=== PATIENT | male | born 1945 | race Caucasian/White ===

== ENCOUNTER 2018-04-08 18:37 | Inpatient (IN) | payer MEDICARE, OTHER ==
[~2018-04-08] VITALS: Ht 177.8 cm; Wt 85.0 kg
[2018-04-08] MEDS ORDERED: LISI10TA5 PO (19:23)
[2018-04-08] MEDS ORDERED: SITA100T PO (19:23)
[2018-04-08] MEDS ORDERED: METF10004 PO (19:23)
[2018-04-08] MEDS ORDERED: GLIM4TAB3 PO ×2 (19:23→19:29)
[2018-04-08 19:28] LABS: BASOPHILS # (AUTO) 0.1 K/uL (0.0-8.0); BASOPHILS % (AUTO) 0.7 % (0.0-2.0); EOSINOPHILS # (AUTO) 0.3 K/uL (0.0-0.7); EOSINOPHILS % (AUTO) 3.2 % (0.0-7.0); HEMATOCRIT 44.6 % (36.7-47.1); HEMOGLOBIN 14.9 g/dL (12.5-16.3); LYMPHOCYTES # (AUTO) 1.1 K/uL (20.0-40.0); LYMPHOCYTES % (AUTO) 13.5 % (20.5-51.5); MEAN CORPUSCULAR HEMOGLOBIN 29.3 uug (23.8-33.4); MEAN CORPUSCULAR HGB CONC 33 g/dL (32.5-36.3); MEAN CORPUSCULAR VOLUME 87.9 fL (73.0-96.2); MONOCYTES # (AUTO) 0.6 K/uL (2.0-10.0); NEUTROPHILS # (AUTO) 6.2 K/uL (1.8-8.9); NEUTROPHILS % (AUTO) 75.6 % (38.5-71.5); PLATELET COUNT (AUTO) 244 K/uL (152-348); RED BLOOD CELL COUNT(AUTO) 5.08 MIL/uL (4.06-5.63); WHITE BLOOD COUNT (AUTO) 8.2 K/uL (3.6-10.2)
[2018-04-08] MEDS ORDERED: MULT1TAB73 PO (19:29)
[2018-04-08] MEDS ORDERED: OMEG-49 PO (19:29)
[2018-04-08 19:44] LABS: *AMPHETAMINE, URINE NEGATIVE (NEGATIVE); *BARBITURATE, URINE NEGATIVE (NEGATIVE); *CANNABINOID, URINE NEGATIVE (NEGATIVE); *COCCAINE, URINE NEGATIVE (NEGATIVE); *OPIATE, URINE NEGATIVE (NEGATIVE); *PHENCYCLIDINE SCREEN,URINE NEGATIVE (NEGATIVE)
[2018-04-08 19:46] LABS: *BILIRUBIN,URIN NEGATIVE (NEGATIVE); *BLOOD, URINE 3+ (NEGATIVE); *CLARITY,URINE CLEAR (CLEAR); *COLOR,URINE YELLOW (YELLOW); *KETONES,URINE 1+ (NEGATIVE); *PROTEIN,URINE NEGATIVE (NEGATIVE); *UROBILINOGEN,URINE 0.2 E.U./dl (NORMAL); LEUKOCYTE ESTERASE ,URINE NEGATIVE (NEGATIVE); NITRITE, URINE NEGATIVE (NEGATIVE); PH,URINE 5.5 (5.0-8.0)
[2018-04-08 19:50] LABS: UGLUCOSE 3+ (NEGATIVE)
[2018-04-08 19:53] LABS: ETHANOL < 3 MG/DL (0-0)
[2018-04-08 19:55] LABS: ALANINE AMINOTRANSFERASE 43 U/L (16-63); ALKALINE PHOSPHATASE 134 U/L (50-136); ASPARTATE AMINOTRANSFERASE 21 U/L (15-37); BILIRUBIN,DIRECT 0.1 mg/dL (0.0-0.2); BILIRUBIN,TOTAL 0.4 mg/dL (0.2-1.0); CARBON DIOXIDE 27 mmol/L (21-32); CHLORIDE 97 mmol/L (98-107); POTASSIUM 4.2 mmol/L (3.5-5.1); TOTAL PROTEIN, SERUM 6.9 g/dL (6.4-8.2); UREA NITROGEN, BLOOD 16 mg/dL (7-18)
[2018-04-08 19:58] LABS: BACTERIA,URINE NONE SEEN /HPF (NONE SEEN); RBC,URINE 50-80 /HPF (0-3); SQUAMOUS EPITHELIAL CELL,UR NONE SEEN /HPF (NONE SEEN); WBC,URINE 0-3 /HPF (0-3)
[2018-04-08 20:04] LABS: ACETAMINOPHEN < 2.0 ug/mL (10-30); GLUCOSE 349 mg/dL (74-106)
[2018-04-08] MEDS ORDERED: INSULIN REGULAR, HUMAN 1,000 UNITS/10 ML VIAL IV ONE (21:15)
[2018-04-08] MEDS ORDERED: LIDOCAINE 2% (UROJET) 10 ML JELLY MM ONE ×2 (21:15→21:23)
[2018-04-08] MEDS ORDERED: INSULIN REGULAR, HUMAN 300 UNIT/3 ML VIAL ONE (21:23)
[2018-04-08] MEDS ORDERED: ACETAMINOPHEN ES 500 MG TABLET PO ONE (22:15)
[2018-04-08] MEDS ORDERED: ACETAMINOPHEN ES 500 MG TABLET ONE (22:24)
[2018-04-09] MEDS ORDERED: BISACODYL 10 MG SUPP.RECT RC ONE ×2 (01:00→01:01)
[2018-04-09 02:00] VITALS: BP 157/74
[2018-04-09] MEDS ORDERED: ONDANSETRON 4 MG/2 ML VIAL IV PRN (03:00)
[2018-04-09] MEDS ORDERED: DEXTROSE 50% 50 ML DISP.SYRIN IV PRN ×2 (03:00→11:00)
[2018-04-09] MEDS ORDERED: Z GUARD REMEDY PASTE 57 GM TUBE TOP PRN (03:00)
[2018-04-09] MEDS: ACETAMINOPHEN 325 MG TABLET PO PRN ×2 (03:47→09:55)
[2018-04-09] MEDS: IV NS 1000 ML 1,000 ML IV PRN (03:48)
[2018-04-09] MEDS ORDERED: CEFTRIAXONE 1 G VIAL ONE (03:57)
[2018-04-09] MEDS: BLOOD SUGAR DIAGNOSTIC 1 EACH STRIP VI SCH ×5 (04:02→20:33)
[2018-04-09] MEDS: CEFTRIAXONE 1 G in IV DEXTROSE 5% 50 ML IV SCH (04:02)
[2018-04-09] MEDS ORDERED: INSULIN REGULAR, HUMAN 300 UNIT/3 ML VIAL ONE (04:05)
[2018-04-09] MEDS: INSULIN REGULAR, HUMAN 300 UNIT/3 ML VIAL SQ PRN ×4 (04:09→17:22)
[2018-04-09 06:56] LABS: BASOPHILS # (AUTO) 0.1 K/uL (0.0-8.0); BASOPHILS % (AUTO) 0.6 % (0.0-2.0); EOSINOPHILS # (AUTO) 0.4 K/uL (0.0-0.7); EOSINOPHILS % (AUTO) 3.6 % (0.0-7.0); HEMATOCRIT 42.4 % (36.7-47.1); HEMOGLOBIN 14.1 g/dL (12.5-16.3); LYMPHOCYTES # (AUTO) 1.8 K/uL (20.0-40.0); LYMPHOCYTES % (AUTO) 17.4 % (20.5-51.5); MEAN CORPUSCULAR HEMOGLOBIN 28.6 uug (23.8-33.4); MEAN CORPUSCULAR HGB CONC 33 g/dL (32.5-36.3); MONOCYTES # (AUTO) 0.7 K/uL (2.0-10.0); MONOCYTES % (AUTO) 6.7 % (0.0-11.0); NEUTROPHILS # (AUTO) 7.3 K/uL (1.8-8.9); NEUTROPHILS % (AUTO) 71.7 % (38.5-71.5); PLATELET COUNT (AUTO) 253 K/uL (152-348); RED BLOOD CELL COUNT(AUTO) 4.93 MIL/uL (4.06-5.63); WHITE BLOOD COUNT (AUTO) 10.3 K/uL (3.6-10.2)
[2018-04-09 07:17] LABS: THYROID STIMULATING HORMONE 2.711 mIU/mL (0.358-3.740)
[2018-04-09 07:19] LABS: ALANINE AMINOTRANSFERASE 38 U/L (16-63); ALKALINE PHOSPHATASE 118 U/L (50-136); ASPARTATE AMINOTRANSFERASE 23 U/L (15-37); BILIRUBIN,TOTAL 0.5 mg/dL (0.2-1.0); CARBON DIOXIDE 25 mmol/L (21-32); CHLORIDE 101 mmol/L (98-107); CREATININE 1.1 mg/dL (0.6-1.3); GLUCOSE 236 mg/dL (74-106); MAGNESIUM 1.7 mg/dL (1.8-2.4); PHOSPHOROUS 3.6 mg/dL (2.5-4.9); POTASSIUM 3.8 mmol/L (3.5-5.1); TOTAL PROTEIN, SERUM 6.7 g/dL (6.4-8.2); UREA NITROGEN, BLOOD 16 mg/dL (7-18)
[2018-04-09 08:22] VITALS: BP 126/72
[2018-04-09] MEDS: MULTIVITAMINS,THERAPEUTIC TABLET PO SCH (08:45)
[2018-04-09] MEDS: SITAGLIPTIN PHOSPHATE 50 MG TABLET PO SCH (08:49)
[2018-04-09] MEDS: LISINOPRIL 10 MG TABLET PO SCH (08:51)
[2018-04-09] MEDS ORDERED: MAGNESIUM SULFATE/D5W 100 ML IV SCH (11:00)
[2018-04-09] MEDS: DOCUSATE SODIUM 100 MG CAPSULE PO SCH ×2 (11:28→20:32)
[2018-04-09 12:00] VITALS: BP 121/77
[2018-04-09] MEDS ORDERED: MAGNESIUM HYDROXIDE 30 ML LIQUID UDC PO ONE (15:30)
[2018-04-09] MEDS ORDERED: GLYCERIN ADULT RECTAL SUPP EACH RC ONE (15:30)
[2018-04-09] MEDS ORDERED: GLYCERIN ADULT RECTAL SUPP EACH RC PRN (15:30)
[2018-04-09 16:26] VITALS: BP 138/79
[2018-04-09] MEDS: GLIMEPIRIDE 4 MG TABLET PO SCH (17:19)
[2018-04-09] MEDS: PANTOPRAZOLE SODIUM 40 MG TABLET.DR PO SCH (17:22)
[2018-04-09 20:00] VITALS: BP 139/75
[2018-04-09] MEDS: INSULIN REGULAR, HUMAN 300 UNITS/3 ML VIAL SQ PRN (20:37)
[2018-04-09] MEDS ORDERED: TRAZODONE 50 MG TABLET NG STA (22:53)
[2018-04-10] MEDS: IV NS 1000 ML 1,000 ML IV PRN ×2 (00:44→15:28)
[2018-04-10 04:00] VITALS: BP 130/72
[2018-04-10] MEDS: CEFTRIAXONE 1 G in IV DEXTROSE 5% 50 ML IV SCH (05:09)
[2018-04-10] MEDS: PANTOPRAZOLE SODIUM 40 MG TABLET.DR PO SCH (06:12)
[2018-04-10] MEDS: BLOOD SUGAR DIAGNOSTIC 1 EACH STRIP VI SCH ×4 (06:13→20:41)
[2018-04-10 06:29] LABS: BASOPHILS % (AUTO) 0.4 % (0.0-2.0); EOSINOPHILS # (AUTO) 0.4 K/uL (0.0-0.7); EOSINOPHILS % (AUTO) 4.5 % (0.0-7.0); HEMATOCRIT 41.7 % (36.7-47.1); HEMOGLOBIN 13.7 g/dL (12.5-16.3); LYMPHOCYTES # (AUTO) 1.6 K/uL (20.0-40.0); LYMPHOCYTES % (AUTO) 18.8 % (20.5-51.5); MEAN CORPUSCULAR HGB CONC 33 g/dL (32.5-36.3); MEAN CORPUSCULAR VOLUME 88.2 fL (73.0-96.2); MONOCYTES # (AUTO) 0.7 K/uL (2.0-10.0); MONOCYTES % (AUTO) 8.5 % (0.0-11.0); NEUTROPHILS # (AUTO) 5.8 K/uL (1.8-8.9); NEUTROPHILS % (AUTO) 67.8 % (38.5-71.5); PLATELET COUNT (AUTO) 222 K/uL (152-348); RED BLOOD CELL COUNT(AUTO) 4.73 MIL/uL (4.06-5.63); WHITE BLOOD COUNT (AUTO) 8.5 K/uL (3.6-10.2)
[2018-04-10 06:44] LABS: CARBON DIOXIDE 26 mmol/L (21-32); CHLORIDE 104 mmol/L (98-107); CREATININE 0.8 mg/dL (0.6-1.3); GLUCOSE 180 mg/dL (74-106); MAGNESIUM 1.8 mg/dL (1.8-2.4); PHOSPHOROUS 3.7 mg/dL (2.5-4.9); POTASSIUM 4.1 mmol/L (3.5-5.1); UREA NITROGEN, BLOOD 11 mg/dL (7-18)
[2018-04-10] MEDS: INSULIN REGULAR, HUMAN 300 UNIT/3 ML VIAL SQ PRN ×3 (08:11→17:08)
[2018-04-10] MEDS: LISINOPRIL 10 MG TABLET PO SCH (08:20)
[2018-04-10] MEDS: MULTIVITAMINS,THERAPEUTIC TABLET PO SCH (08:20)
[2018-04-10] MEDS: SITAGLIPTIN PHOSPHATE 50 MG TABLET PO SCH (08:20)
[2018-04-10] MEDS: DOCUSATE SODIUM 100 MG CAPSULE PO SCH ×2 (08:20→20:44)
[2018-04-10] MEDS: MORPHINE SULFATE 2 MG/1 ML DISP.SYRIN IV PRN ×2 (09:35→22:29)
[2018-04-10 12:00] VITALS: BP 120/63
[2018-04-10] MEDS ORDERED: FLEET ENEMA 133 ML BOTTLE RC ONE (12:30)
[2018-04-10 15:56] VITALS: BP 108/51
[2018-04-10] MEDS: GLIMEPIRIDE 4 MG TABLET PO SCH (17:08)
[2018-04-10 19:30] VITALS: BP 105/59
[2018-04-10] MEDS: INSULIN REGULAR, HUMAN 300 UNITS/3 ML VIAL SQ PRN (20:55)
[2018-04-10] MEDS ORDERED: TRAZODONE 50 MG TABLET PO SCH (21:00)
[2018-04-11] MEDS: CEFTRIAXONE 1 G in IV DEXTROSE 5% 50 ML IV SCH (03:37)
[2018-04-11] MEDS: BLOOD SUGAR DIAGNOSTIC 1 EACH STRIP VI SCH ×4 (05:06→21:14)
[2018-04-11] MEDS: IV NS 1000 ML 1,000 ML IV PRN (05:07)
[2018-04-11] MEDS: PANTOPRAZOLE SODIUM 40 MG TABLET.DR PO SCH (05:43)
[2018-04-11 06:37] LABS: BASOPHILS # (AUTO) 0.1 K/uL (0.0-8.0); BASOPHILS % (AUTO) 0.7 % (0.0-2.0); EOSINOPHILS # (AUTO) 0.4 K/uL (0.0-0.7); EOSINOPHILS % (AUTO) 4.6 % (0.0-7.0); HEMATOCRIT 41.3 % (36.7-47.1); HEMOGLOBIN 13.5 g/dL (12.5-16.3); LYMPHOCYTES # (AUTO) 2.1 K/uL (20.0-40.0); LYMPHOCYTES % (AUTO) 25.5 % (20.5-51.5); MEAN CORPUSCULAR HGB CONC 33 g/dL (32.5-36.3); MEAN CORPUSCULAR VOLUME 88.5 fL (73.0-96.2); MONOCYTES # (AUTO) 0.6 K/uL (2.0-10.0); MONOCYTES % (AUTO) 7.3 % (0.0-11.0); NEUTROPHILS # (AUTO) 5.1 K/uL (1.8-8.9); NEUTROPHILS % (AUTO) 61.9 % (38.5-71.5); PLATELET COUNT (AUTO) 228 K/uL (152-348); RED BLOOD CELL COUNT(AUTO) 4.67 MIL/uL (4.06-5.63); WHITE BLOOD COUNT (AUTO) 8.1 K/uL (3.6-10.2)
[2018-04-11 06:53] LABS: ALANINE AMINOTRANSFERASE 30 U/L (16-63); ALKALINE PHOSPHATASE 82 U/L (50-136); ASPARTATE AMINOTRANSFERASE 20 U/L (15-37); BILIRUBIN,TOTAL 0.3 mg/dL (0.2-1.0); CARBON DIOXIDE 28 mmol/L (21-32); CHLORIDE 103 mmol/L (98-107); CREATININE 0.8 mg/dL (0.6-1.3); GLUCOSE 151 mg/dL (74-106); MAGNESIUM 1.8 mg/dL (1.8-2.4); PHOSPHOROUS 4.2 mg/dL (2.5-4.9); POTASSIUM 4.1 mmol/L (3.5-5.1); UREA NITROGEN, BLOOD 11 mg/dL (7-18)
[2018-04-11] MEDS: DOCUSATE SODIUM 100 MG CAPSULE PO SCH ×2 (08:11→21:13)
[2018-04-11] MEDS: MULTIVITAMINS,THERAPEUTIC TABLET PO SCH (08:11)
[2018-04-11] MEDS: ACETAMINOPHEN 325 MG TABLET PO PRN (08:11)
[2018-04-11] MEDS: SITAGLIPTIN PHOSPHATE 50 MG TABLET PO SCH (08:11)
[2018-04-11] MEDS: INSULIN REGULAR, HUMAN 300 UNIT/3 ML VIAL SQ PRN ×2 (08:14→17:16)
[2018-04-11] MEDS: LISINOPRIL 10 MG TABLET PO SCH (08:15)
[2018-04-11] MEDS: GLIMEPIRIDE 4 MG TABLET PO SCH ×2 (09:07→17:10)
[2018-04-11 11:11] VITALS: BP 116/57
[2018-04-11 15:40] VITALS: BP 118/75
[2018-04-11] MEDS ORDERED: LIDOCAINE 2% 30 ML JELLY MC ONE (17:00)
[2018-04-11] MEDS: PHENAZOPYRIDINE HCL 100 MG TABLET PO SCH ×2 (17:10→21:14)
[2018-04-11 20:00] VITALS: BP 118/67
[2018-04-11] MEDS: TRAZODONE 100 MG TABLET PO SCH (21:13)
[2018-04-11] MEDS: SENNOSIDES 1 TABLET PO SCH (21:13)
[2018-04-11] MEDS: TAMSULOSIN HCL 0.4 MG CAP.SR.24H PO SCH (21:14)
[2018-04-12] MEDS: CEFTRIAXONE 1 G in IV DEXTROSE 5% 50 ML IV SCH (05:00)
[2018-04-12 06:06] VITALS: BP 112/62
[2018-04-12] MEDS: PANTOPRAZOLE SODIUM 40 MG TABLET.DR PO SCH (06:23)
[2018-04-12] MEDS: GLIMEPIRIDE 4 MG TABLET PO SCH ×2 (06:24→17:05)
[2018-04-12] MEDS: IV NS 1000 ML 1,000 ML IV PRN ×2 (06:24→22:47)
[2018-04-12] MEDS: PHENAZOPYRIDINE HCL 100 MG TABLET PO SCH ×3 (06:24→21:32)
[2018-04-12 06:29] LABS: BASOPHILS # (AUTO) 0.1 K/uL (0.0-8.0); BASOPHILS % (AUTO) 0.8 % (0.0-2.0); EOSINOPHILS # (AUTO) 0.3 K/uL (0.0-0.7); EOSINOPHILS % (AUTO) 3.4 % (0.0-7.0); HEMATOCRIT 42.7 % (36.7-47.1); HEMOGLOBIN 14.3 g/dL (12.5-16.3); LYMPHOCYTES # (AUTO) 1.5 K/uL (20.0-40.0); LYMPHOCYTES % (AUTO) 18.7 % (20.5-51.5); MEAN CORPUSCULAR HEMOGLOBIN 29.4 uug (23.8-33.4); MEAN CORPUSCULAR HGB CONC 33 g/dL (32.5-36.3); MONOCYTES # (AUTO) 0.7 K/uL (2.0-10.0); MONOCYTES % (AUTO) 8.8 % (0.0-11.0); NEUTROPHILS # (AUTO) 5.5 K/uL (1.8-8.9); NEUTROPHILS % (AUTO) 68.3 % (38.5-71.5); PLATELET COUNT (AUTO) 209 K/uL (152-348); RED BLOOD CELL COUNT(AUTO) 4.86 MIL/uL (4.06-5.63)
[2018-04-12] MEDS: MORPHINE SULFATE 2 MG/1 ML DISP.SYRIN IV PRN (06:29)
[2018-04-12] MEDS: BLOOD SUGAR DIAGNOSTIC 1 EACH STRIP VI SCH ×4 (06:32→21:32)
[2018-04-12 06:39] LABS: ALANINE AMINOTRANSFERASE 35 U/L (16-63); ALKALINE PHOSPHATASE 90 U/L (50-136); ASPARTATE AMINOTRANSFERASE 24 U/L (15-37); BILIRUBIN,TOTAL 0.4 mg/dL (0.2-1.0); CARBON DIOXIDE 25 mmol/L (21-32); CHLORIDE 105 mmol/L (98-107); GLUCOSE 244 mg/dL (74-106); MAGNESIUM 1.9 mg/dL (1.8-2.4); PHOSPHOROUS 3.4 mg/dL (2.5-4.9); POTASSIUM 4.2 mmol/L (3.5-5.1); TOTAL PROTEIN, SERUM 6.3 g/dL (6.4-8.2); UREA NITROGEN, BLOOD 11 mg/dL (7-18)
[2018-04-12 08:00] VITALS: BP 151/70
[2018-04-12] MEDS: INSULIN REGULAR, HUMAN 300 UNIT/3 ML VIAL SQ PRN ×4 (08:02→21:34)
[2018-04-12] MEDS: DOCUSATE SODIUM 100 MG CAPSULE PO SCH ×2 (08:02→21:32)
[2018-04-12] MEDS: LISINOPRIL 10 MG TABLET PO SCH (08:03)
[2018-04-12] MEDS: MULTIVITAMINS,THERAPEUTIC TABLET PO SCH (08:03)
[2018-04-12] MEDS: SITAGLIPTIN PHOSPHATE 50 MG TABLET PO SCH (08:03)
[2018-04-12] MEDS: FINASTERIDE 5 MG TABLET PO SCH (08:03)
[2018-04-12 12:00] VITALS: BP 120/69
[2018-04-12] MEDS ORDERED: LIDOCAINE HCL 2% 20 ML VIAL IJ PRN (12:00)
[2018-04-12] MEDS ORDERED: GLYCERIN ADULT RECTAL SUPP EACH RC ONE (12:00)
[2018-04-12] MEDS ORDERED: MAGNESIUM CITRATE 296 ML BOTTLE PO ONE (12:00)
[2018-04-12] MEDS: CEPHALEXIN MONOHYDRATE 500 MG CAPSULE PO SCH ×2 (14:40→21:32)
[2018-04-12] MEDS: KETOROLAC TROMETHAMINE 30 MG INJ IVP SCH ×2 (14:40→19:39)
[2018-04-12 17:08] VITALS: BP 106/56
[2018-04-12 20:00] VITALS: BP 114/63
[2018-04-12] MEDS ORDERED: PHENAZOPYRIDINE HCL 100 MG TABLET ONE (21:18)
[2018-04-12] MEDS: SENNOSIDES 1 TABLET PO SCH (21:32)
[2018-04-12] MEDS: TAMSULOSIN HCL 0.4 MG CAP.SR.24H PO SCH (21:32)
[2018-04-12] MEDS: TRAZODONE 100 MG TABLET PO SCH (21:32)
[2018-04-12] MEDS: INSULIN REGULAR, HUMAN 300 UNITS/3 ML VIAL SQ PRN (21:34)
[2018-04-13] MEDS: KETOROLAC TROMETHAMINE 30 MG INJ IVP SCH ×3 (01:54→14:11)
[2018-04-13 04:00] VITALS: BP 145/78
[2018-04-13] MEDS: PANTOPRAZOLE SODIUM 40 MG TABLET.DR PO SCH (06:24)
[2018-04-13] MEDS: CEPHALEXIN MONOHYDRATE 500 MG CAPSULE PO SCH ×2 (06:25→14:12)
[2018-04-13] MEDS: GLIMEPIRIDE 4 MG TABLET PO SCH ×2 (06:25→17:21)
[2018-04-13] MEDS: BLOOD SUGAR DIAGNOSTIC 1 EACH STRIP VI SCH ×3 (06:29→16:38)
[2018-04-13 06:44] LABS: BASOPHILS % (AUTO) 0.6 % (0.0-2.0); EOSINOPHILS # (AUTO) 0.2 K/uL (0.0-0.7); EOSINOPHILS % (AUTO) 2.4 % (0.0-7.0); HEMATOCRIT 43.8 % (36.7-47.1); HEMOGLOBIN 14.6 g/dL (12.5-16.3); LYMPHOCYTES # (AUTO) 1.2 K/uL (20.0-40.0); LYMPHOCYTES % (AUTO) 14.4 % (20.5-51.5); MEAN CORPUSCULAR HEMOGLOBIN 29.6 uug (23.8-33.4); MEAN CORPUSCULAR HGB CONC 33 g/dL (32.5-36.3); MEAN CORPUSCULAR VOLUME 88.5 fL (73.0-96.2); MONOCYTES # (AUTO) 0.4 K/uL (2.0-10.0); MONOCYTES % (AUTO) 4.7 % (0.0-11.0); NEUTROPHILS # (AUTO) 6.4 K/uL (1.8-8.9); NEUTROPHILS % (AUTO) 77.9 % (38.5-71.5); PLATELET COUNT (AUTO) 230 K/uL (152-348); RED BLOOD CELL COUNT(AUTO) 4.95 MIL/uL (4.06-5.63); WHITE BLOOD COUNT (AUTO) 8.2 K/uL (3.6-10.2)
[2018-04-13 07:02] LABS: ALANINE AMINOTRANSFERASE 26 U/L (16-63); ALKALINE PHOSPHATASE 87 U/L (50-136); ASPARTATE AMINOTRANSFERASE 17 U/L (15-37); BILIRUBIN,TOTAL 0.4 mg/dL (0.2-1.0); CARBON DIOXIDE 29 mmol/L (21-32); CHLORIDE 103 mmol/L (98-107); CREATININE 0.9 mg/dL (0.6-1.3); GLUCOSE 105 mg/dL (74-106); MAGNESIUM 1.9 mg/dL (1.8-2.4); PHOSPHOROUS 3.3 mg/dL (2.5-4.9); POTASSIUM 4.1 mmol/L (3.5-5.1); TOTAL PROTEIN, SERUM 6.1 g/dL (6.4-8.2); UREA NITROGEN, BLOOD 14 mg/dL (7-18)
[2018-04-13] MEDS: PHENAZOPYRIDINE HCL 100 MG TABLET PO SCH ×2 (08:33→14:12)
[2018-04-13] MEDS: LISINOPRIL 10 MG TABLET PO SCH (08:35)
[2018-04-13] MEDS: DOCUSATE SODIUM 100 MG CAPSULE PO SCH (08:35)
[2018-04-13] MEDS: SITAGLIPTIN PHOSPHATE 50 MG TABLET PO SCH (08:35)
[2018-04-13] MEDS: MULTIVITAMINS,THERAPEUTIC TABLET PO SCH (08:36)
[2018-04-13] MEDS: FINASTERIDE 5 MG TABLET PO SCH (08:36)
[2018-04-13 11:14] VITALS: BP 111/61
[2018-04-13] MEDS: IV NS 1000 ML 1,000 ML IV PRN (12:21)
[2018-04-13] MEDS: INSULIN REGULAR, HUMAN 300 UNIT/3 ML VIAL SQ PRN ×2 (12:24→16:56)
[2018-04-13] MEDS ORDERED: INSU100V28 SQ ×2 (13:35)
[2018-04-13] MEDS ORDERED: [UNRECOGNIZED DRUG - CODE] RC (13:35)
[2018-04-13] MEDS ORDERED: LISI10TA5 PO (13:35)
[2018-04-13] MEDS ORDERED: HYDR-3326 PO (13:35)
[2018-04-13] MEDS ORDERED: DOCU100C36 PO (13:35)
[2018-04-13] MEDS ORDERED: MULT-24 PO (13:35)
[2018-04-13] MEDS ORDERED: CEPH500C2 PO (13:35)
[2018-04-13] MEDS ORDERED: FINA5TAB11 PO (13:35)
[2018-04-13] MEDS ORDERED: Blood Sugar Diagnostic VI (13:35)
[2018-04-13] MEDS ORDERED: ACET325T53 PO (13:35)
[2018-04-13] MEDS ORDERED: TRAZ-214 PO (13:35)
[2018-04-13] MEDS ORDERED: TAMS-3 PO (13:35)
[2018-04-13] MEDS ORDERED: SENN-167 PO (13:35)
[2018-04-13] MEDS ORDERED: GLIM4TAB PO ×2 (13:35)
[2018-04-13] MEDS ORDERED: PANT40TA2 PO (13:35)
[2018-04-13 16:22] VITALS: BP 127/72
[2018-04-14] MEDS ORDERED: LINAGLIPTIN 5 MG TABLET PO SCH (09:00)
== END 2018-04-13 18:10 | DRG 389 ==
LOC: ER 18:39 → MED 04-09 01:19
PROVIDERS: ADMIT Psychiatry & Neurology Psychiatry; ATTEND Internal Medicine
PROC: 0T9B70Z Drainage of Bladder with Drainage Device, Via Natural or Artificial Opening (ICD-10-PCS; principal; 2018-04-08)
DX: K56.41 Fecal impaction (principal); N13.8 Other obstructive and reflux uropathy; E44.0 Moderate protein-calorie malnutrition; J98.11 Atelectasis; N40.1 Benign prostatic hyperplasia with lower urinary tract symptoms; R33.8 Other retention of urine; N21.0 Calculus in bladder; E11.65 Type 2 diabetes mellitus with hyperglycemia; Z79.84 Long term (current) use of oral hypoglycemic drugs; Z65.3 Problems related to other legal circumstances; F32.9 Major depressive disorder, single episode, unspecified; R31.29 Other microscopic hematuria; Z68.26 Body mass index [BMI] 26.0-26.9, adult; K76.0 Fatty (change of) liver, not elsewhere classified; G47.00 Insomnia, unspecified; F41.9 Anxiety disorder, unspecified; E83.42 Hypomagnesemia; E88.09 Other disorders of plasma-protein metabolism, not elsewhere classified; Z91.5 Personal history of self-harm; G54.2 Cervical root disorders, not elsewhere classified; K57.30 Diverticulosis of large intestine without perforation or abscess without bleeding; K40.90 Unilateral inguinal hernia, without obstruction or gangrene, not specified as recurrent; I10 Essential (primary) hypertension; Z98.42 Cataract extraction status, left eye; Z98.41 Cataract extraction status, right eye; Z91.19 Patient's noncompliance with other medical treatment and regimen; I70.0 Atherosclerosis of aorta; E11.40 Type 2 diabetes mellitus with diabetic neuropathy, unspecified
CPT/HCPCS: 36415; 70030-TC; 71045; 74018; 80307; 83735; 84100; 84153; 84443; 85025; 93005; A4663; A9150; G0480; G0480-TC; J0696; J1815; J1885; J2270; J3475; J7030; J7060

== ENCOUNTER 2018-04-13 18:50 | Inpatient (IN) | payer MEDICARE, OTHER ==
[~2018-04-13] VITALS: Ht 177.8 cm; Wt 79.4 kg
[~2018-04-13 18:50] MED LIST: ACET325T53 PO; Blood Sugar Diagnostic VI; CEPH500C2 PO; DOCU100C36 PO; FINA5TAB11 PO; GLIM4TAB PO; GLIM4TAB3 PO; HYDR-3326 PO; INSU100V28 SQ; LISI10TA5 PO; METF10004 PO; MULT-24 PO; MULT1TAB73 PO; OMEG-49 PO; PANT40TA2 PO; SENN-167 PO; SITA100T PO; TAMS-3 PO; TRAZ-214 PO; [UNRECOGNIZED DRUG - CODE] RC
[2018-04-13] MEDS ORDERED: MAGNESIUM HYDROXIDE 30 ML LIQUID UDC PO PRN (19:00)
[2018-04-13] MEDS ORDERED: MAG HYDROX/AL HYDROX/SIMETH 30 ML LIQUID UDC PO PRN (19:00)
[2018-04-13] MEDS ORDERED: ACETAMINOPHEN 325 MG TABLET PO PRN (19:00)
[2018-04-13] MEDS ORDERED: LORAZEPAM 1 MG TABLET PO PRN (19:00)
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
[2018-04-13 20:00] VITALS: BP 128/65
[2018-04-13] MEDS ORDERED: GLYCERIN ADULT RECTAL SUPP EACH RC PRN (20:00)
[2018-04-13] MEDS ORDERED: INSULIN REGULAR, HUMAN 300 UNIT/3 ML VIAL SQ PRN ×3 (20:00)
[2018-04-13] MEDS ORDERED: DEXTROSE 50% 50 ML DISP.SYRIN IV PRN (20:00)
[2018-04-13] MEDS ORDERED: hydrALAZINE HCL 25 MG TABLET PO PRN (20:00)
[2018-04-13] MEDS: TRAZODONE 100 MG TABLET PO SCH (21:12)
[2018-04-13] MEDS: TAMSULOSIN HCL 0.4 MG CAP.SR.24H PO SCH (21:12)
[2018-04-13] MEDS: DOCUSATE SODIUM 100 MG CAPSULE PO SCH (21:12)
[2018-04-13] MEDS: SENNOSIDES 1 TABLET PO SCH (21:12)
[2018-04-13] MEDS: BLOOD SUGAR DIAGNOSTIC 1 EACH STRIP VI SCH (21:15)
[2018-04-13] MEDS ORDERED: INSULIN REGULAR, HUMAN 300 UNIT/3 ML VIAL ONE (22:14)
[2018-04-14] MEDS ORDERED: GLIMEPIRIDE 4 MG TABLET ONE (05:38)
[2018-04-14] MEDS: CEPHALEXIN MONOHYDRATE 500 MG CAPSULE PO SCH ×3 (06:15→21:11)
[2018-04-14] MEDS: PANTOPRAZOLE SODIUM 40 MG TABLET.DR PO SCH (06:15)
[2018-04-14] MEDS: HYDROCODONE/APAP 5-325MG TABLET PO PRN ×2 (06:22→19:53)
[2018-04-14] MEDS: GLIMEPIRIDE 4 MG TABLET PO SCH ×2 (06:30→18:00)
[2018-04-14] MEDS: BLOOD SUGAR DIAGNOSTIC 1 EACH STRIP VI SCH ×4 (06:30→21:27)
[2018-04-14 07:30] VITALS: BP 114/69
[2018-04-14] MEDS ORDERED: Medication Not On Formulary EA (Omega-3/Dha/Epa/Fish Oil (Fish Oil 1,000 Mg Softgel) 1 E PO SCH (09:00)
[2018-04-14] MEDS: LINAGLIPTIN 5 MG TABLET PO SCH (09:00)
[2018-04-14] MEDS: DOCUSATE SODIUM 100 MG CAPSULE PO SCH ×2 (09:15→21:11)
[2018-04-14] MEDS: MULTIVITAMINS,THERAPEUTIC TABLET PO SCH (09:15)
[2018-04-14] MEDS: OMEGA-3 FATTY ACIDS/FISH OIL CAPSULE PO SCH (09:15)
[2018-04-14] MEDS: FINASTERIDE 5 MG TABLET PO SCH (09:16)
[2018-04-14] MEDS: LISINOPRIL 5 MG TABLET PO SCH (09:17)
[2018-04-14] MEDS: METFORMIN HCL 500 MG TABLET PO SCH ×2 (09:24→18:00)
[2018-04-14 16:47] VITALS: BP 121/70
--- NOTE | 2018-04-14 18:40 | NUR ---
RECEIVED PATIENT IN BED SLEEPING MOST OF SHIFT ,REFUSED TO EAT BREAKFAST AND LUNCH ,ACC -CHECK DONE INSULIN COVERAGE NOT GIVEN DUE TO NOT EATING THE MEALS,F/C IN PLACE WITH 750 ML OUT PUT .
[2018-04-14 19:30] VITALS: BP 116/62
[2018-04-14] MEDS: TAMSULOSIN HCL 0.4 MG CAP.SR.24H PO SCH (21:10)
[2018-04-14] MEDS: SENNOSIDES 1 TABLET PO SCH (21:11)
[2018-04-14] MEDS: TRAZODONE 100 MG TABLET PO SCH (21:11)
--- NOTE | 2018-04-14 22:00 | NUR ---
RECEIVED TO CARE, PLEASANT, BUT ISOLATIVE, UPON APPROACH. SUNNY torres wasgiven at 1952 for groin pain 03/28, which was effective (2/), by 2099. INSULIN COVERAGE WAS NOT GIVEN, DUE TO PT SLEEPING, AND NOT TAKING A SNACK. OF 2199, HE APPEARS TO BE ASLEEP. NO DISTRESS NOTED.
[2018-04-15] MEDS: HYDROCODONE/APAP 5-325MG TABLET PO PRN ×2 (02:13→16:23)
[2018-04-15] MEDS ORDERED: DEXTROSE 50% 50 ML DISP.SYRIN IV PRN (05:30)
[2018-04-15] MEDS: CEPHALEXIN MONOHYDRATE 500 MG CAPSULE PO SCH ×2 (06:23→13:52)
[2018-04-15] MEDS: PANTOPRAZOLE SODIUM 40 MG TABLET.DR PO SCH (06:24)
--- NOTE | 2018-04-15 06:30 | NUR ---
slept 6.45 hours total
[2018-04-15] MEDS: BLOOD SUGAR DIAGNOSTIC 1 EACH STRIP VI SCH ×4 (06:34→22:04)
[2018-04-15 07:30] VITALS: BP 105/60
[2018-04-15 07:41] LABS: BASOPHILS % (AUTO) 0.3 % (0.0-2.0); EOSINOPHILS # (AUTO) 0.9 K/uL (0.0-0.7); EOSINOPHILS % (AUTO) 8.2 % (0.0-7.0); HEMATOCRIT 42.2 % (36.7-47.1); HEMOGLOBIN 14.1 g/dL (12.5-16.3); LYMPHOCYTES # (AUTO) 1.5 K/uL (20.0-40.0); LYMPHOCYTES % (AUTO) 13.9 % (20.5-51.5); MEAN CORPUSCULAR HGB CONC 33 g/dL (32.5-36.3); MEAN CORPUSCULAR VOLUME 86.6 fL (73.0-96.2); MONOCYTES # (AUTO) 0.7 K/uL (2.0-10.0); MONOCYTES % (AUTO) 6.3 % (0.0-11.0); NEUTROPHILS # (AUTO) 7.4 K/uL (1.8-8.9); NEUTROPHILS % (AUTO) 71.3 % (38.5-71.5); PLATELET COUNT (AUTO) 229 K/uL (152-348); RED BLOOD CELL COUNT(AUTO) 4.87 MIL/uL (4.06-5.63); WHITE BLOOD COUNT (AUTO) 10.4 K/uL (3.6-10.2)
[2018-04-15 08:00] LABS: ALANINE AMINOTRANSFERASE 16 U/L (16-63); ALKALINE PHOSPHATASE 97 U/L (50-136); ASPARTATE AMINOTRANSFERASE 16 U/L (15-37); BILIRUBIN,TOTAL 0.3 mg/dL (0.2-1.0); CARBON DIOXIDE 25 mmol/L (21-32); CHLORIDE 103 mmol/L (98-107); CREATININE 0.9 mg/dL (0.6-1.3); GLUCOSE 150 mg/dL (74-106); PHOSPHOROUS 3.4 mg/dL (2.5-4.9); POTASSIUM 3.9 mmol/L (3.5-5.1); TOTAL PROTEIN, SERUM 5.8 g/dL (6.4-8.2); UREA NITROGEN, BLOOD 14 mg/dL (7-18)
[2018-04-15] MEDS: MULTIVITAMINS,THERAPEUTIC TABLET PO SCH (08:14)
[2018-04-15] MEDS: METFORMIN HCL 500 MG TABLET PO SCH ×2 (08:14→17:29)
[2018-04-15] MEDS: DOCUSATE SODIUM 100 MG CAPSULE PO SCH ×2 (08:14→20:53)
[2018-04-15] MEDS: OMEGA-3 FATTY ACIDS/FISH OIL CAPSULE PO SCH (08:15)
[2018-04-15] MEDS: LISINOPRIL 5 MG TABLET PO SCH (08:15)
[2018-04-15] MEDS: FINASTERIDE 5 MG TABLET PO SCH (08:15)
[2018-04-15] MEDS: LINAGLIPTIN 5 MG TABLET PO SCH (08:16)
[2018-04-15] MEDS: GLIMEPIRIDE 4 MG TABLET PO SCH ×2 (08:16→17:29)
--- NOTE | 2018-04-15 13:54 | NUR ---
Initial DC Instructions: Patient currently resides at home alone [[address] [place] [address]; [phone]]. Pt reports he would like to return home when ready for discharge. Pt reports he has a Cyber Systems Administrator, Divina Hernandez. However, pt could not remember her contact information. SW will follow-up to speak with Divina about patient's discharge plans if able. SW will continue to collaborate with pt and MD regarding most appropriate discharge plans. SW will form a safe and proper discharge.
[2018-04-15 16:42] VITALS: BP 123/74
[2018-04-15 19:43] VITALS: BP 127/72
[2018-04-15] MEDS: SENNOSIDES 1 TABLET PO SCH (20:52)
[2018-04-15] MEDS: MIRTAZAPINE 15 MG TABLET PO SCH (20:53)
[2018-04-15] MEDS: TAMSULOSIN HCL 0.4 MG CAP.SR.24H PO SCH (20:53)
--- NOTE | 2018-04-15 22:00 | NUR ---
received to care, lying in bed, isolative, but pleasant upon approach. compliant with medications and staff direction. denies pain or discomfort. blood sugar was 167. insulin coverage was held due to the fact that he would not eat anything, and he refused both breakfast and lunch, today. isabel catheter is patent, draining clear and smita urine, in adequate amounts. as of 2200, he appears to be asleep. no distress noted. will continue to monitor closely.
[2018-04-16] MEDS: BLOOD SUGAR DIAGNOSTIC 1 EACH STRIP VI SCH ×4 (06:18→20:28)
[2018-04-16] MEDS: PANTOPRAZOLE SODIUM 40 MG TABLET.DR PO SCH (06:18)
--- NOTE | 2018-04-16 06:44 | NUR ---
slept 8.5 hours total.
[2018-04-16 07:30] VITALS: BP 113/62
[2018-04-16] MEDS: METFORMIN HCL 500 MG TABLET PO SCH ×2 (08:00→18:19)
[2018-04-16] MEDS: HYDROCODONE/APAP 5-325MG TABLET PO PRN ×2 (09:19→18:17)
[2018-04-16] MEDS: FINASTERIDE 5 MG TABLET PO SCH (10:30)
[2018-04-16] MEDS: OMEGA-3 FATTY ACIDS/FISH OIL CAPSULE PO SCH (10:30)
[2018-04-16] MEDS: MULTIVITAMINS,THERAPEUTIC TABLET PO SCH (10:30)
[2018-04-16] MEDS: DOCUSATE SODIUM 100 MG CAPSULE PO SCH ×2 (10:30→20:35)
[2018-04-16] MEDS: GLIMEPIRIDE 4 MG TABLET PO SCH ×2 (10:31→18:19)
[2018-04-16] MEDS: LINAGLIPTIN 5 MG TABLET PO SCH (10:32)
[2018-04-16] MEDS: LISINOPRIL 5 MG TABLET PO SCH (10:47)
--- NOTE | 2018-04-16 11:41 | NUR ---
MEDICATIONS GIVEN, PATIENT DOESN'T WANT TO TAKE UNTIL PAIN IN HIS LOWER BACK RELIEVED.
[2018-04-16] MEDS: INSULIN REGULAR, HUMAN 300 UNIT/3 ML VIAL SQ PRN ×3 (13:09→21:04)
--- NOTE | 2018-04-16 16:23 | NUR ---
Discharge planning note: family service worker returned phone call to Divina Hernandez Pt's credit administration officer. called both her work ([phone]) and cell ([phone]) numbers but received no answer so left VM at approx 3:30pm. received return phone call from Divina at approx 3:40pm. Per Divina, Pt has no access to the internet since since his criminal charges. Divina states this has been a big upset for Pt as he "lived" on the internet. As part of Pt's probation, he is required to attend a sex offender psychologist and get a polygraph every 6 months. PerDivina, Pt has had difficulty with probation and has been reluctant to participate. Divina explained how the current hospitalization has interfered with his probation, but understands he needs the psychiatric treatment. Divina further stated that this hospitalization will be good for Pt as she can now push for him to continue to receive psychiatric care under probation. family service worker explained Pt's progress and isolative behavior. family service worker encouraged executive officer to call Pt and provided her with nursing station phone number and Pt room number. family service worker will continue to work on a safe and appropriate d/c plan for Pt and will follow-up with executive officer as needed.
[2018-04-16 16:30] VITALS: BP 127/66
[2018-04-16 20:14] VITALS: BP 115/70
[2018-04-16] MEDS: SENNOSIDES 1 TABLET PO SCH (20:35)
[2018-04-16] MEDS: MIRTAZAPINE 15 MG TABLET PO SCH (20:35)
[2018-04-16] MEDS: TAMSULOSIN HCL 0.4 MG CAP.SR.24H PO SCH (20:35)
--- NOTE | 2018-04-16 22:00 | NUR ---
received to care, lying in bed, anxious, but pleasant upon approach. isabel cathter remains patent, draining clear and smita urine, in adequate amounts. he was concerned about his room mate being noisy, so he came to the nurses station, for a while, and sat in a alexa chair. he was compliant with all medications, including insulin, and a bedtime snack. he was reassured that his roommate was now quiet, but he wanted to stay at the nurses station, for now. currently sitting up. no distress noted. emotional support provided. will continue to monitor closely.
[2018-04-16] MEDS: TEMAZEPAM 7.5 MG CAPSULE PO PRN (23:21)
--- NOTE | 2018-04-16 23:21 | NUR ---
remains awake. PRN restoril was given, for insomnia.
--- NOTE | 2018-04-16 23:55 | NUR ---
went to bed at 2330. as of 2354, he appears to be asleep. no distress noted.
[2018-04-17] MEDS: PANTOPRAZOLE SODIUM 40 MG TABLET.DR PO SCH (06:24)
[2018-04-17] MEDS: BLOOD SUGAR DIAGNOSTIC 1 EACH STRIP VI SCH ×4 (06:24→20:37)
--- NOTE | 2018-04-17 07:01 | NUR ---
slept 5.5 hours total
[2018-04-17 07:17] LABS: BASOPHILS # (AUTO) 0.1 K/uL (0.0-8.0); BASOPHILS % (AUTO) 0.8 % (0.0-2.0); EOSINOPHILS # (AUTO) 1.8 K/uL (0.0-0.7); EOSINOPHILS % (AUTO) 16.6 % (0.0-7.0); HEMATOCRIT 43.4 % (36.7-47.1); HEMOGLOBIN 14.6 g/dL (12.5-16.3); LYMPHOCYTES # (AUTO) 2.4 K/uL (20.0-40.0); MEAN CORPUSCULAR HEMOGLOBIN 29.5 uug (23.8-33.4); MEAN CORPUSCULAR HGB CONC 34 g/dL (32.5-36.3); MEAN CORPUSCULAR VOLUME 87.8 fL (73.0-96.2); MONOCYTES # (AUTO) 0.8 K/uL (2.0-10.0); MONOCYTES % (AUTO) 7.2 % (0.0-11.0); NEUTROPHILS # (AUTO) 5.8 K/uL (1.8-8.9); NEUTROPHILS % (AUTO) 53.4 % (38.5-71.5); PLATELET COUNT (AUTO) 262 K/uL (152-348); RED BLOOD CELL COUNT(AUTO) 4.95 MIL/uL (4.06-5.63); WHITE BLOOD COUNT (AUTO) 10.9 K/uL (3.6-10.2)
[2018-04-17 07:30] VITALS: BP 137/73
[2018-04-17 07:34] LABS: CARBON DIOXIDE 29 mmol/L (21-32); CHLORIDE 102 mmol/L (98-107); CREATININE 0.8 mg/dL (0.6-1.3); GLUCOSE 106 mg/dL (74-106); POTASSIUM 3.6 mmol/L (3.5-5.1); UREA NITROGEN, BLOOD 11 mg/dL (7-18)
[2018-04-17 08:04] LABS: MONOCYTES % (MANUAL) 7 % (2-10)
[2018-04-17 08:05] LABS: EOSINOPHILS % (MANUAL) 17 % (0-8); LYMPHOCYTES % (MANUAL) 21 % (20-40); NEUTROPHILS % (MANUAL) 55 % (42-75)
[2018-04-17] MEDS: OMEGA-3 FATTY ACIDS/FISH OIL CAPSULE PO SCH (08:55)
[2018-04-17] MEDS: FINASTERIDE 5 MG TABLET PO SCH (08:55)
[2018-04-17] MEDS: MULTIVITAMINS,THERAPEUTIC TABLET PO SCH (08:56)
[2018-04-17] MEDS: LINAGLIPTIN 5 MG TABLET PO SCH (08:56)
[2018-04-17] MEDS: METFORMIN HCL 500 MG TABLET PO SCH ×2 (08:56→18:00)
[2018-04-17] MEDS: GLIMEPIRIDE 4 MG TABLET PO SCH ×2 (08:56→18:00)
[2018-04-17] MEDS: LISINOPRIL 5 MG TABLET PO SCH (08:57)
[2018-04-17] MEDS: DOCUSATE SODIUM 100 MG CAPSULE PO SCH ×2 (09:00→20:25)
--- NOTE | 2018-04-17 12:25 | NUR ---
Discharge Planning: clay house worker called and left for Leighton ([phone]) with [facility] services. clay house worker will need transportation for Pt back to [facility].
[2018-04-17] MEDS: INSULIN REGULAR, HUMAN 300 UNIT/3 ML VIAL SQ PRN (13:27)
[2018-04-17 16:20] VITALS: BP 127/78
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
[2018-04-17] MEDS: TAMSULOSIN HCL 0.4 MG CAP.SR.24H PO SCH (20:25)
[2018-04-17] MEDS: SENNOSIDES 1 TABLET PO SCH (20:26)
[2018-04-17] MEDS: MIRTAZAPINE 15 MG TABLET PO SCH (20:26)
[2018-04-17 20:43] VITALS: BP 110/67
[2018-04-17] MEDS: TEMAZEPAM 7.5 MG CAPSULE PO PRN (22:55)
--- NOTE | 2018-04-17 22:56 | NUR ---
GPS: PATIENT C/O INSOMNIA. RESTORIL 7.5 MG PO GIVEN.
--- NOTE | 2018-04-17 23:26 | NUR ---
gps: patient sleeping eye close prn effective for sleep.
[2018-04-18] MEDS: PANTOPRAZOLE SODIUM 40 MG TABLET.DR PO SCH (06:04)
--- NOTE | 2018-04-18 06:08 | NUR ---
gps: remain calm and cooperative with medication and care. f/c patent. Draining yellow urine noted. SLEPT 5:30 HRS after Restoril 7.5 mg given. no behavior problem noted.
[2018-04-18] MEDS: BLOOD SUGAR DIAGNOSTIC 1 EACH STRIP VI SCH ×4 (06:27→20:52)
[2018-04-18 07:30] VITALS: BP 114/66
[2018-04-18] MEDS: GLIMEPIRIDE 4 MG TABLET PO SCH ×2 (08:12→17:29)
--- NOTE | 2018-04-18 08:16 | NUR ---
Gps/Security System Administrator- Complained of occ. pain on his right lower rib cage area, offered prn , refused, claimed it comes and goes, appeared to be muscle spasms /pt. Patient planned shower today after breakfast, informed notify staff when ready. Cooperative, pleasant this am. Verbalized had good night sleep.
[2018-04-18] MEDS: LINAGLIPTIN 5 MG TABLET PO SCH (08:41)
[2018-04-18] MEDS: MULTIVITAMINS,THERAPEUTIC TABLET PO SCH (08:41)
[2018-04-18] MEDS: FINASTERIDE 5 MG TABLET PO SCH (08:41)
[2018-04-18] MEDS: LISINOPRIL 5 MG TABLET PO SCH (08:42)
[2018-04-18] MEDS: METFORMIN HCL 500 MG TABLET PO SCH ×2 (08:42→17:29)
[2018-04-18] MEDS: OMEGA-3 FATTY ACIDS/FISH OIL CAPSULE PO SCH (08:43)
[2018-04-18] MEDS: DOCUSATE SODIUM 100 MG CAPSULE PO SCH ×2 (08:43→21:00)
[2018-04-18] MEDS: INSULIN REGULAR, HUMAN 300 UNIT/3 ML VIAL SQ PRN ×3 (12:12→20:57)
[2018-04-18 15:57] VITALS: BP 117/73
--- NOTE | 2018-04-18 18:42 | NUR ---
Gps/Maxillofacial Prosthetics Dentist- Patient requesting, wants to be called "INDIO" !
--- NOTE | 2018-04-18 20:00 | NUR ---
RECEIVED PATIENT IN HIS ROOM IN BED, HE IS NOTED AWAKE A/O X 3. ABLE TO AMBULATED WITH STEADY GAIT AND ABLE TO MAKE HIS NEEDS KNOWN. HE IS NOTED PLEASANT AND COOPERATIVE AT THIS TIME. HE DENIES FEELING DEPRESSED, DENIES SI/HI/AH/VH. HE IS ABLE TO CFS. HE CONTINUE WITH A VEGA CATH. PATIENT TOLERATE WELL. DENIES PAIN OR DISCOMFORT AT THIS TIME. SAFETY EMPHASIS WILL CONTINUE TO MONITOR.
[2018-04-18] MEDS: MIRTAZAPINE 15 MG TABLET PO SCH (20:53)
[2018-04-18] MEDS: TAMSULOSIN HCL 0.4 MG CAP.SR.24H PO SCH (20:54)
[2018-04-18 20:55] VITALS: BP 117/71
[2018-04-18] MEDS: SENNOSIDES 1 TABLET PO SCH (21:00)
--- NOTE | 2018-04-18 21:30 | NUR ---
PATIENT BLOOD GLUCOSE WAS 232. HUMULIN R 4 UNITS WERE GIVEN. PATIENT HAD SOME SNACKS. WILL CONTINUE TO MONITOR. Addendum: 04/19/18 at 0056 by BOBBI SERNA RN PATIENT REFUSED SENNA-LAX AND COLACE QHS.
[2018-04-18] MEDS: TEMAZEPAM 7.5 MG CAPSULE PO PRN (22:12)
[2018-04-19] MEDS: HYDROCODONE/APAP 5-325MG TABLET PO PRN (06:17)
[2018-04-19] MEDS: PANTOPRAZOLE SODIUM 40 MG TABLET.DR PO SCH (06:18)
[2018-04-19] MEDS: BLOOD SUGAR DIAGNOSTIC 1 EACH STRIP VI SCH ×4 (06:57→21:40)
[2018-04-19 07:30] VITALS: BP 141/75
[2018-04-19] MEDS: FINASTERIDE 5 MG TABLET PO SCH (08:35)
[2018-04-19] MEDS: MULTIVITAMINS,THERAPEUTIC TABLET PO SCH (08:36)
[2018-04-19] MEDS: METFORMIN HCL 500 MG TABLET PO SCH ×2 (08:36→17:18)
[2018-04-19] MEDS: OMEGA-3 FATTY ACIDS/FISH OIL CAPSULE PO SCH (08:36)
[2018-04-19] MEDS: LISINOPRIL 5 MG TABLET PO SCH (08:37)
[2018-04-19] MEDS: GLIMEPIRIDE 4 MG TABLET PO SCH ×2 (08:38→17:18)
[2018-04-19] MEDS: DOCUSATE SODIUM 100 MG CAPSULE PO SCH ×2 (08:38→21:25)
[2018-04-19] MEDS: LINAGLIPTIN 5 MG TABLET PO SCH (08:38)
[2018-04-19] MEDS: INSULIN REGULAR, HUMAN 300 UNIT/3 ML VIAL SQ PRN ×3 (12:13→21:38)
[2018-04-19 15:16] VITALS: BP 127/72
[2018-04-19 21:15] VITALS: BP 118/71
[2018-04-19] MEDS: SENNOSIDES 1 TABLET PO SCH (21:25)
[2018-04-19] MEDS: TAMSULOSIN HCL 0.4 MG CAP.SR.24H PO SCH (21:25)
[2018-04-19] MEDS: MIRTAZAPINE 15 MG TABLET PO SCH (21:26)
[2018-04-19] MEDS: TEMAZEPAM 7.5 MG CAPSULE PO PRN (22:05)
--- NOTE | 2018-04-19 23:11 | NUR ---
RECEIVED PATIENT IN BED AND WAS PLEASANT UPON APPROACH.INITIATES CONTACT BUT COULD ONLY SUSTAIN CONVERSATION FOR SHORT PERIODS OF TIME.HE IS A/O X 3 BUT APPEARS WITHDRAWN.DENIES SI/HI. SCHEDULED ROUNDS MADE FREQUENTLY TO HIS ROOM FOR SAFETY. NO DISTRESS OR PAIN REPORTED BUT LATER REQUESTED FOR SLEEPING AID AND WAS GIVEN AFTER ASSESSMENT WITH GOOD EFFECT.HE HAS A F/C WHICH IS PATENT AND DRAINING YELLOW URINE. WILL D/C CATHETER TOMORROW AT UROLOGIST REQUEST.WILL CONTINUE TO MONITOR.
--- NOTE | 2018-04-20 06:35 | NUR ---
SLEPT FOR APPROX.5;30HRS.VEGA'S CATHETER D/C PER DOCTOCS ORDERS. URINE OUTPUT 300ML.ENCOURAGED TO VOID BY HIMSELF AND TO DRINK WATER.ALSO TO LET STAFF KNOW IF HE IS ABLE TO VOID.
[2018-04-20] MEDS: PANTOPRAZOLE SODIUM 40 MG TABLET.DR PO SCH (06:37)
[2018-04-20 08:30] VITALS: BP 127/80
[2018-04-20] MEDS: METFORMIN HCL 500 MG TABLET PO SCH ×2 (08:37→17:50)
[2018-04-20] MEDS: MULTIVITAMINS,THERAPEUTIC TABLET PO SCH (08:37)
[2018-04-20] MEDS: OMEGA-3 FATTY ACIDS/FISH OIL CAPSULE PO SCH (08:37)
[2018-04-20] MEDS: FINASTERIDE 5 MG TABLET PO SCH (08:37)
[2018-04-20] MEDS: LISINOPRIL 5 MG TABLET PO SCH (08:38)
[2018-04-20] MEDS: GLIMEPIRIDE 4 MG TABLET PO SCH ×2 (08:41→17:50)
[2018-04-20] MEDS: LINAGLIPTIN 5 MG TABLET PO SCH (08:41)
[2018-04-20] MEDS: BLOOD SUGAR DIAGNOSTIC 1 EACH STRIP VI SCH ×4 (08:51→21:07)
[2018-04-20] MEDS: INSULIN REGULAR, HUMAN 300 UNIT/3 ML VIAL SQ PRN ×4 (08:52→21:02)
[2018-04-20] MEDS: DOCUSATE SODIUM 100 MG CAPSULE PO SCH ×2 (08:52→20:54)
--- NOTE | 2018-04-20 10:34 | NUR ---
Received pt, he states that he slept ok but that his roommate makes it hard for him to sleep well. Pt A&O X3, preoccupied with bladder problem that brought him to the hospital. Pt worried bladder problem will come back and wants to know what caused bladder stoma in the first place. Pt states that he wants to go home and would like double portions of food. Denies SI/HI, complied with director of sports medicine, refused colace and states that he had loose stool 04/18/18. Pt advised to let va underwriter know when he has voided after isabel cath removal 04/20/18 on NOC shift.
--- NOTE | 2018-04-20 15:34 | NUR ---
Gps/Machine Designer- Patient has no urge to void, claimed had been to the bathroom trying to void, no results. BVI >999 ml, informe Juan Valentino DNP. Dr Seay(Urologist was called left message) [phone]
[2018-04-20 15:59] VITALS: BP 115/68
--- NOTE | 2018-04-20 16:03 | NUR ---
Gps/Torch Heater- Dr Seay (Urologist) reuturned call, ok to reinsert isabel catheter .
[2018-04-20] MEDS ORDERED: LIDOCAINE 2% (UROJET) 10 ML JELLY MM PRN (17:15)
[2018-04-20] MEDS: LIDOCAINE 2% (UROJET) 10 ML JELLY MM PRN ×2 (17:30→17:45)
--- NOTE | 2018-04-20 17:45 | NUR ---
Gps/Associate Media Director- Juan SHERIFF from ER in to insert isabel catheter(cude) , after staff had unsuccessful attempt to reinsert isabel cath. Isabel catheter cude secured, attached to drainage bag draining clear yellow smita urine.Per patient he dose not want to have her isabel catheter dc'd until there is a plan by Urologist .
[2018-04-20] MEDS: HYDROCODONE/APAP 5-325MG TABLET PO PRN (18:07)
[2018-04-20] MEDS: TAMSULOSIN HCL 0.4 MG CAP.SR.24H PO SCH (20:55)
[2018-04-20] MEDS: MIRTAZAPINE 15 MG TABLET PO SCH (20:56)
[2018-04-20] MEDS: SENNOSIDES 1 TABLET PO SCH (20:57)
[2018-04-20] MEDS: TEMAZEPAM 7.5 MG CAPSULE PO PRN (21:08)
--- NOTE | 2018-04-20 22:46 | NUR ---
RECEIVED PATIENT IN BED AND WAS PLEASANT UPON APPROACH BUT PROCEEDED TO TELL STAFF HOW HIS CATHETER WAS FINALLY PASSED AND HOW HE WANTED A PLAN IN PLACE BEFORE F/C CAN BE DISCONTINUED. HE IS A/O X 3 BUT APPEARS WITHDRAWN. DENIES SI/HI. SCHEDULED ROUNDS MADE FREQUENTLY TO HIS ROOM FOR SAFETY AND BLOODY THIGH S/P CATHETER INSERTION CLEANED AND MADE COMFORTABLE IN BED. HE STATED PAIN WAS AT BEARABLE LEVEL .HE LATER REQUESTED FOR SLEEPING AID AND WAS GIVEN AFTER ASSESSMENT WITH GOOD EFFECT.HE HAS A F/C WHICH IS PATENT AND DRAINING YELLOW URINE. WILL CONTINUE TO MONITOR.
[2018-04-21] MEDS: PANTOPRAZOLE SODIUM 40 MG TABLET.DR PO SCH ×2 (06:26→09:42)
[2018-04-21] MEDS: BLOOD SUGAR DIAGNOSTIC 1 EACH STRIP VI SCH ×4 (06:27→20:44)
--- NOTE | 2018-04-21 06:39 | NUR ---
SLEPT INTERMITTENTLY FOR 5;30HRS. BLOOD SUGAR CHECKS THIS AM WAS 111. URINE OUTPUT WAS 600ML. NO COMPLIANT OF PAIN. F/C PATENT AND DRAINING WELL.
[2018-04-21 07:30] VITALS: BP 119/68
[2018-04-21] MEDS: DOCUSATE SODIUM 100 MG CAPSULE PO SCH ×2 (09:00→20:03)
[2018-04-21] MEDS: LINAGLIPTIN 5 MG TABLET PO SCH (09:40)
[2018-04-21] MEDS: METFORMIN HCL 500 MG TABLET PO SCH ×2 (09:41→18:11)
[2018-04-21] MEDS: GLIMEPIRIDE 4 MG TABLET PO SCH ×2 (09:41→18:10)
[2018-04-21] MEDS: OMEGA-3 FATTY ACIDS/FISH OIL CAPSULE PO SCH (09:41)
[2018-04-21] MEDS: MULTIVITAMINS,THERAPEUTIC TABLET PO SCH (09:42)
[2018-04-21] MEDS: LISINOPRIL 5 MG TABLET PO SCH (09:42)
[2018-04-21] MEDS: FINASTERIDE 5 MG TABLET PO SCH (09:42)
[2018-04-21] MEDS: HYDROCODONE/APAP 5-325MG TABLET PO PRN ×3 (10:15→10:22)
--- NOTE | 2018-04-21 11:05 | NUR ---
Pt complaining of intermittent sharp pain in his lower right abdomen. Pt states the pain has been coming every 2-3 hours since reinsertion of isabel cath yesterday evening. Pt states pain is 7/10. Pt states that pain has now progressed to every 5-10 minutes. Pt offered PRN [place] but pt refused med. Pt is req to have a procedure to get rid of his bladder stone that he states is to big to pass on its own per a doctor that he names from an ER. Pt is passing urine adequately into isabel bag, urine is smita color. I will continue to monitor, offer PRN and notify .
[2018-04-21 15:56] VITALS: BP 127/76
[2018-04-21] MEDS: INSULIN REGULAR, HUMAN 300 UNIT/3 ML VIAL SQ PRN ×2 (17:26→20:48)
[2018-04-21] MEDS: TAMSULOSIN HCL 0.4 MG CAP.SR.24H PO SCH (20:03)
[2018-04-21] MEDS: SENNOSIDES 1 TABLET PO SCH (20:04)
[2018-04-21] MEDS: MIRTAZAPINE 15 MG TABLET PO SCH (20:04)
[2018-04-21 20:26] VITALS: BP 119/70
[2018-04-22] MEDS: BLOOD SUGAR DIAGNOSTIC 1 EACH STRIP VI SCH ×4 (06:32→21:07)
--- NOTE | 2018-04-22 06:38 | NUR ---
GPS/REJOINER: REMAIN CALM AND COOPERATIVE. NO BEHAVIOR ISSUE NOTED. F/C OUT PUT 400CC. SLEPT 6:30 HRS THROUGH THE NIGHT. CONTINUE PLAN OF CARE.
[2018-04-22 06:52] LABS: BASOPHILS # (AUTO) 0.1 K/uL (0.0-8.0); BASOPHILS % (AUTO) 0.9 % (0.0-2.0); EOSINOPHILS # (AUTO) 4.9 K/uL (0.0-0.7); HEMATOCRIT 44.6 % (36.7-47.1); HEMOGLOBIN 14.6 g/dL (12.5-16.3); LYMPHOCYTES # (AUTO) 2.4 K/uL (20.0-40.0); LYMPHOCYTES % (AUTO) 18.6 % (20.5-51.5); MEAN CORPUSCULAR HEMOGLOBIN 28.8 uug (23.8-33.4); MEAN CORPUSCULAR HGB CONC 33 g/dL (32.5-36.3); MEAN CORPUSCULAR VOLUME 87.6 fL (73.0-96.2); MONOCYTES # (AUTO) 0.5 K/uL (2.0-10.0); MONOCYTES % (AUTO) 4.2 % (0.0-11.0); NEUTROPHILS % (AUTO) 38.5 % (38.5-71.5); PLATELET COUNT (AUTO) 230 K/uL (152-348); RED BLOOD CELL COUNT(AUTO) 5.08 MIL/uL (4.06-5.63); WHITE BLOOD COUNT (AUTO) 13.1 K/uL (3.6-10.2)
[2018-04-22 06:57] LABS: CARBON DIOXIDE 29 mmol/L (21-32); CHLORIDE 100 mmol/L (98-107); CREATININE 0.9 mg/dL (0.6-1.3); GLUCOSE 122 mg/dL (74-106); POTASSIUM 3.7 mmol/L (3.5-5.1); UREA NITROGEN, BLOOD 18 mg/dL (7-18)
[2018-04-22 07:17] LABS: EOSINOPHILS % (AUTO) 37.8 % (0.0-7.0)
[2018-04-22 07:30] VITALS: BP 105/62
[2018-04-22] MEDS: METFORMIN HCL 500 MG TABLET PO SCH ×2 (08:20→17:28)
[2018-04-22] MEDS: OMEGA-3 FATTY ACIDS/FISH OIL CAPSULE PO SCH (08:24)
[2018-04-22] MEDS: FINASTERIDE 5 MG TABLET PO SCH (08:25)
[2018-04-22] MEDS: LISINOPRIL 5 MG TABLET PO SCH (08:26)
[2018-04-22] MEDS: GLIMEPIRIDE 4 MG TABLET PO SCH ×2 (08:26→17:28)
[2018-04-22] MEDS: MULTIVITAMINS,THERAPEUTIC TABLET PO SCH (08:26)
[2018-04-22] MEDS: LINAGLIPTIN 5 MG TABLET PO SCH (08:26)
[2018-04-22] MEDS: DOCUSATE SODIUM 100 MG CAPSULE PO SCH ×2 (08:34→21:07)
[2018-04-22 09:04] LABS: EOSINOPHILS % (MANUAL) 29 % (0-8); LYMPHOCYTES % (MANUAL) 25 % (20-40); MONOCYTES % (MANUAL) 4 % (2-10); NEUTROPHILS % (MANUAL) 42 % (42-75)
[2018-04-22] MEDS: INSULIN REGULAR, HUMAN 300 UNIT/3 ML VIAL SQ PRN ×3 (12:46→21:13)
[2018-04-22 16:00] VITALS: BP 128/64
--- NOTE | 2018-04-22 16:16 | NUR ---
Discharge Note: daycare worker met with Pt by Pt request. Pt expressed concern and frustration about being kept in radha-psych unit when pt feels he should be on a medical floor for needed surgery by a urologist. Pt has been previously told by Rn that surgery will not be done on medical floor. However, Pt then stated that he would like to be transferred to [facility] or another hospital where he can have "competent" urologist perform surgery. Sw provided empathic listening and reassured pt that the matter will be looked into tomorrow morning as social work associate is leaving for the day. Iglesia will follow-up with Pt MD tomorrow morning and will continue to help Pt in a safe and proper d/c when ready.
--- NOTE | 2018-04-22 16:51 | NUR ---
spoke with Urology RE; Isabel cath removal ,per Dr. Seay patient able to go home with isabel cath.
[2018-04-22 19:30] VITALS: BP 120/75
--- NOTE | 2018-04-22 20:00 | NUR ---
RECEIVED PATIENT IN HIS ROOM IN BED, HE IS NOTED AWAKE A/O X 3. ABLE TO AMBULATED WITH STEADY GAIT AND ABLE TO MAKE HIS NEEDS KNOWN. HE IS NOTED PLEASANT AND COOPERATIVE AT THIS TIME. HE DENIES FEELING DEPRESSED, DENIES SI/HI/AH/VH. HE IS ABLE TO CFS. HE CONTINUE WITH A EVGA CATH. PATENT, DENIES PAIN OR DISCOMFORT AT THIS TIME. YELLOW CLEAR URINE IS NOTED. SAFETY EMPHASIS. WILL CONTINUE TO MONITOR.
[2018-04-22] MEDS: SENNOSIDES 1 TABLET PO SCH (21:07)
[2018-04-22] MEDS: MIRTAZAPINE 15 MG TABLET PO SCH (21:07)
[2018-04-22] MEDS: TAMSULOSIN HCL 0.4 MG CAP.SR.24H PO SCH (21:07)
[2018-04-23] MEDS: PANTOPRAZOLE SODIUM 40 MG TABLET.DR PO SCH (06:21)
[2018-04-23] MEDS: BLOOD SUGAR DIAGNOSTIC 1 EACH STRIP VI SCH ×4 (06:45→21:18)
--- NOTE | 2018-04-23 06:57 | NUR ---
PATIENT SLEPT FOR APPROX 6.30 HRS THROUGH THE NIGHT. URINE WAS COLLECTED AND SENT OUT FOR URINALYSIS AND CULTURE AND SENSITIVITY. URINE OUTPUT VIA VEGA CATH WAS 250CC DURING THE SHIFT. PATIENT WAS ENCOURAGE TO DRINK PLENTY OF WATER. WILL CONTINUE TO MONITOR,
[2018-04-23 07:08] LABS: *BILIRUBIN,URIN NEGATIVE (NEGATIVE); *BLOOD, URINE 1+ (NEGATIVE); *CLARITY,URINE CLEAR (CLEAR); *COLOR,URINE YELLOW (YELLOW); *KETONES,URINE NEGATIVE (NEGATIVE); *PROTEIN,URINE 1+ (NEGATIVE); *UROBILINOGEN,URINE 0.2 E.U./dl (NORMAL); LEUKOCYTE ESTERASE ,URINE TRACE (NEGATIVE); NITRITE, URINE NEGATIVE (NEGATIVE); PH,URINE 5.5 (5.0-8.0); UGLUCOSE NEGATIVE (NEGATIVE)
[2018-04-23 07:13] LABS: BACTERIA,URINE FEW /HPF (NONE SEEN); SQUAMOUS EPITHELIAL CELL,UR FEW /HPF (NONE SEEN); YEAST,URINE BUDDING YEAST /HPF (NONE SEEN)
[2018-04-23 07:30] VITALS: BP 120/75
[2018-04-23] MEDS: GLIMEPIRIDE 4 MG TABLET PO SCH ×2 (08:24→17:40)
[2018-04-23] MEDS: METFORMIN HCL 500 MG TABLET PO SCH ×2 (08:24→17:40)
[2018-04-23] MEDS: MULTIVITAMINS,THERAPEUTIC TABLET PO SCH (08:25)
[2018-04-23] MEDS: OMEGA-3 FATTY ACIDS/FISH OIL CAPSULE PO SCH (08:25)
[2018-04-23] MEDS: DOCUSATE SODIUM 100 MG CAPSULE PO SCH ×2 (08:25→21:17)
[2018-04-23] MEDS: LISINOPRIL 5 MG TABLET PO SCH (08:26)
[2018-04-23] MEDS: FINASTERIDE 5 MG TABLET PO SCH (08:26)
[2018-04-23] MEDS: LINAGLIPTIN 5 MG TABLET PO SCH (08:26)
[2018-04-23] MEDS: INSULIN REGULAR, HUMAN 300 UNIT/3 ML VIAL SQ PRN ×3 (12:09→21:18)
[2018-04-23] MEDS: CEPHALEXIN MONOHYDRATE 500 MG CAPSULE PO SCH ×3 (12:28→21:17)
[2018-04-23] MEDS: FLUCONAZOLE 100 MG TABLET PO SCH (12:29)
--- NOTE | 2018-04-23 14:00 | NUR ---
Discharge planning: Social neri met with Pt, RN (Kayla), and INSURANCE FOLLOW UP REP (Tamar) to discuss Pt discharge plan. Pt was medically cleared by INSURANCE FOLLOW UP REP and made aware that there is no need for Pt to be transferred to the med floor. Pt also made aware that we cannot transfer him to another hospital for urology follow-up as Pt can be seen as an outpatient. Pt was accepting of all information. Pt hold will be expiring tomorrow (04/24/18) and he will be cleared to for d/c. farmworker pullet farm presented Pt with two options for d/c. The first option was to go to a SNF where he could follow-up with urology through his insurance. The second option was for Pt to return home ([address] [place] [address] [address] [place] [address]) and be seen by HH and receive a list of accepting Medicare urologists in the [place] area. After discussion of both options, Pt chose to return home with HH. Pt is aware and accepting of his choice. Social neir called and spoke with Tigre at [facility] to confirm that they service the [facility], which they do. Social neri faxed pt packet with HH order to [facility] (fax: [phone]; ph: [phone]) and is awaiting to receive confirmation. Social neri then called and reached out to Pt's investigation officer, Divina Hernandez (cell: [phone]; work: [phone]) to inform her of Pt's tentative d/c plan. Social neri has printed out a list of medicare accepting urologists in Pt's local area and will provide to Pt upon d/c. Addendum: 04/23/18 at 1438 by SHAISTA PIMENTEL Additional information: farmworker pullet farm discussed tentative d/c plan with Divina Hernandez Pt's investigation officer. PO wishes that Pt calls her from his home phone number once Pt has reached his residence. Pt has been made aware of this request and has agreed to do so.
--- NOTE | 2018-04-23 15:32 | NUR ---
Discharge planning: geriatric social worker faxed pt packet for review to Kaitlin at [facility] (fax: [phone]; ph: [phone]). geriatric social worker awaiting response and will continue to plan a safe and proper d/c.
--- NOTE | 2018-04-23 16:00 | NUR ---
Discharge planning: protective services social worker received callback from Waldemar with [facility] ([phone]), stating the Pt has been accepted to receive home health services. [facility] was made aware of Pt's d/c date scheduled for tomorrow, 04/24/18, and will see the Pt within 24 hours. Addendum: 04/23/18 at 1605 by SHAISTA PIMENTEL Additional information: Pt also made aware of company, [employer], that will be servicing him.
[2018-04-23 16:19] VITALS: BP 119/72
--- NOTE | 2018-04-23 19:40 | NUR ---
RECEIVED PATIENT IN ALEX DAY ROOM SITTING IN A CHAIR AND INTERACTING WITH PEERS, HE IS NOTED AWAKE A/O X 3. ABLE TO AMBULATED WITH STEADY GAIT AND ABLE TO MAKE HIS NEEDS KNOWN. HE IS NOTED PLEASANT AND COOPERATIVE. LESS WITHDRAWN, ABLE TO VERBALIZED FEELINGS. HE DENIES FEELING DEPRESSED, DENIES SI/HI. HE IS ABLE TO CFS. HE CONTINUE WITH A VEGA CATH. YELLOW URINE NOTED. PATENT STATED THAT HE HAS HAVING BACK PAIN. PAIN MEDICATION OFFERED; HOWEVER, HE REFUSED, HE STATED, "ONCE I AM IN BED, THE PAIN GOES AWAY." SAFETY EMPHASIS, WILL CONTINUE TO MONITOR.
[2018-04-23 20:35] VITALS: BP 123/70
[2018-04-23] MEDS: SENNOSIDES 1 TABLET PO SCH (21:15)
[2018-04-23] MEDS: TAMSULOSIN HCL 0.4 MG CAP.SR.24H PO SCH (21:17)
[2018-04-23] MEDS: MIRTAZAPINE 15 MG TABLET PO SCH (21:17)
[2018-04-23] MEDS: HYDROCODONE/APAP 5-325MG TABLET PO PRN (22:53)
--- NOTE | 2018-04-23 22:56 | NUR ---
PATIENT C/O LOWER BACK PAIN 7/10 IN THE PAIN INTENSITY SCALE. NORCO 5-325MG PO PRN WAS GIVEN FOR PAIN. WILL MONITOR FOR RESULTS.
[2018-04-24] MEDS: CEPHALEXIN MONOHYDRATE 500 MG CAPSULE PO SCH (06:24)
[2018-04-24] MEDS: PANTOPRAZOLE SODIUM 40 MG TABLET.DR PO SCH (06:24)
--- NOTE | 2018-04-24 07:28 | NUR ---
PATIENT SLEPT FOR APPROX 6.30 HRS THROUGH THE NIGHT. URINE OUTPUT 250CC. PATIENT COMPLIANT WITH MEDICATION REGIMENT DIET AND PLAN OF CARE.
--- NOTE | 2018-04-24 08:22 | NUR ---
Discharge Note: Patient will be discharged back to his home [[address] [place] [address]; [phone]] via [facility] between 12:30 and 1:00pm. production staff worker arranged transportation with Kasandra at [facility] and confirmed transportation for Pt will arrive today between 12:30-1:00pm with Leela ([phone]). Patient will receive home health services through [facility] ([phone]). Patient does not have any family contacts at this time. However, Pt does have a public relations officer, Divina Hernandez [cell# [phone]; work # [phone]], who is aware of Pt discharge and will be following up with Pt. Patient is alert and oriented x3, is able to plan for self-care, and denies any SI/HI. Patient is aware and agreeable with discharge plans. Patient will continue to follow-up with his Primary Care Physician, Dr. Jazmine Greenberg [[address] [facility] [address] [place] [address]; [phone]] Patient currently does not have an outpatient psychiatrist and will be in the process of looking for one. Pt was provided with a list of Medicare accepting psychiatrists located in the [facility]. Pt was also provided with a list of Medicare accepting urologists in the [facility]. Patient was provided additional mental health referrals for the [facility] [[phone]], [facility] [[phone]], and the National Suicide Prevention Lifeline [ ]. Patient was provided a brief substance abuse intervention and was provided outpatient referrals for [facility] [[phone]], [facility] [[phone]], and [facility] National Hotline [ ]. All referrals and resources have been made aware to the Pt and have been discussed.
[2018-04-24 08:23] VITALS: BP 124/64
[2018-04-24] MEDS: OMEGA-3 FATTY ACIDS/FISH OIL CAPSULE PO SCH (08:58)
[2018-04-24 09:00] VITALS: BP 124/64
[2018-04-24] MEDS: METFORMIN HCL 500 MG TABLET PO SCH (09:00)
[2018-04-24] MEDS: LISINOPRIL 5 MG TABLET PO SCH (09:00)
[2018-04-24] MEDS: FINASTERIDE 5 MG TABLET PO SCH (09:00)
[2018-04-24] MEDS: DOCUSATE SODIUM 100 MG CAPSULE PO SCH (09:00)
[2018-04-24] MEDS: LINAGLIPTIN 5 MG TABLET PO SCH (09:01)
[2018-04-24] MEDS: GLIMEPIRIDE 4 MG TABLET PO SCH (09:01)
[2018-04-24] MEDS: FLUCONAZOLE 100 MG TABLET PO SCH (09:01)
[2018-04-24] MEDS: MULTIVITAMINS,THERAPEUTIC TABLET PO SCH (09:01)
[2018-04-24] MEDS: BLOOD SUGAR DIAGNOSTIC 1 EACH STRIP VI SCH ×2 (09:19→11:30)
[2018-04-24] MEDS ORDERED: LACTOBACILLUS RHAMNOSUS GG 1 EACH CAPSULE PO SCH (10:30)
[2018-04-24] MEDS ORDERED: AMPICILLIN 500 MG CAPSULE PO SCH (11:00)
[2018-04-24] MEDS: HYDROCODONE/APAP 5-325MG TABLET PO PRN (11:01)
== END 2018-04-24 11:45 | disposition home health service (06) | DRG 881 ==
LOC: GPS 18:50
PROVIDERS: ADMIT Psychiatry & Neurology Psychiatry; ATTEND Nurse Practitioner Acute Care
PROC: 0T9B70Z Drainage of Bladder with Drainage Device, Via Natural or Artificial Opening (ICD-10-PCS; principal; 2018-04-20)
DX: F32.9 Major depressive disorder, single episode, unspecified (principal); B95.2 Enterococcus as the cause of diseases classified elsewhere; E11.65 Type 2 diabetes mellitus with hyperglycemia; N39.0 Urinary tract infection, site not specified; E44.0 Moderate protein-calorie malnutrition; Z65.3 Problems related to other legal circumstances; Z91.5 Personal history of self-harm; G54.2 Cervical root disorders, not elsewhere classified; G47.00 Insomnia, unspecified; Z98.42 Cataract extraction status, left eye; Z98.41 Cataract extraction status, right eye; G89.29 Other chronic pain; Z79.4 Long term (current) use of insulin; E83.42 Hypomagnesemia; K76.0 Fatty (change of) liver, not elsewhere classified; N40.1 Benign prostatic hyperplasia with lower urinary tract symptoms; R33.8 Other retention of urine; R31.29 Other microscopic hematuria; Z68.25 Body mass index [BMI] 25.0-25.9, adult; K57.30 Diverticulosis of large intestine without perforation or abscess without bleeding; E78.5 Hyperlipidemia, unspecified; K59.00 Constipation, unspecified; N21.0 Calculus in bladder; K40.90 Unilateral inguinal hernia, without obstruction or gangrene, not specified as recurrent
CPT/HCPCS: 36415; 74018; 83735; 84100; 85025; 87077; 87086; J0290; J1815